=== PATIENT | male | born 1995 | race Caucasian/White ===

== ENCOUNTER 2018-03-17 18:12 | Emergency (ER) | payer BC ==
[2018-03-17] MEDS ORDERED: Famotidine/PF 20 mg/2ml Vial ONE (18:18)
[2018-03-17] MEDS ORDERED: diphenhydrAMINE 50 MG/ML VIAL ONE (18:18)
[2018-03-17] MEDS ORDERED: methylPREDNISolone Sod Succ/PF 125 MG/2 ML VIAL ONE (18:18)
[2018-03-17] MEDS ORDERED: EPINEPHrine 1 MG/ML AMP ONE (18:18)
--- NOTE | 2018-03-17 21:49 | CT ---
CT BRAIN 03/17/18 HISTORY: Syncope. Noncontrast enhanced CT images of the brain is obtained from base of skull through the vertex. Brain and bone windows obtained. 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 No evidence of acute intracranial masses, hemorrhages, strokes or contusions seen. IMPRESSION: No evidence of acute intracranial pathology seen. POS: [facility]
--- NOTE | 2018-03-17 21:54 | CT ---
CT FACIAL BONES: 03/17/18 HISTORY: Trauma. Axial images are obtained with coronal and sagittal reconstructions. CT images of the facial bones demonstrate no definite evidence of facial fractures, subluxations or b darron lesions. There is mild left to right nasal septal deviation seen. Minimal bilateral maxillary sinus mucosal thickening is seen. IMPRESSION: No evidence of facial fractures seen. POS: [facility]
[2018-03-17] MEDS ORDERED: Bacitracin Zinc 1 Packet ONE (22:48)
[2018-03-17] MEDS ORDERED: diphenhydrAMINE 25 MG CAP ONE (23:12)
== END 2018-03-17 23:20 | disposition home or self-care (01) ==
LOC: ERS 18:12
DX: T78.40XA Allergy, unspecified, initial encounter (principal); S00.31XA Abrasion of nose, initial encounter; R55 Syncope and collapse; X58.XXXA Exposure to other specified factors, initial encounter
CPT/HCPCS: 70450; 70486; 93005; 96361; 96372; 96374; 96375; J0171; J1200; J2930; Q0163; S0028